=== PATIENT | male | born 1995 | race African-American/Black ===

== ENCOUNTER 2017-12-06 10:27 | Emergency (ER) | payer OTHER ==
[~2017-12-06] VITALS: Ht 193 cm; Wt 85.7 kg
--- NOTE | ~2017-12-06 | EKG ---
[address] [address] ELECTROCARDIOGRAM REPORT Name: CONSUELO WHITE Room #: DEP [facility]#: [id number] Admission: 12/06/17 Attend Phys: Discharge: 12/06/17 Date of : [birth year] Report #: [id number] THIS REPORT FOR: //name// [facility] [place] [facility] ED Test Date: 2017-12-06 Test Time: 10:37:57 Pat Name: CONSUELO WHITE Department: Room: Gender: M Directory Operator: [facility] : 1995 Requested By: Noni Wilkes Order Number: [id number] MD: Ulices Aceves Measurements Intervals Meally Rate: 45 P: 64 LA: 209 QRS: 71 QRSD: 108 T: 47 QT: 467 QTc: 404 Interpretive Statements Sinus bradycardia Probable left ventricular hypertrophy Baseline wander in lead(s) V3,V4 Compared to ECG 05/23/2016 05:52:50 Sinus arrhythmia no longer present Electronically Signed On 12-06-2017 17:11:59 CDT by Ulices Aceves [email or web address] <ELECTRONICALLY SIGNED> By: Ulices Aceves MD 12/06/17 1711 1037 [id number] Ulices Aceves MD /EPI
[~2017-12-06 10:27] MED LIST: PROAIR HFA8.5 GM INH
[2017-12-06 10:35] VITALS: BP 145/78
[2017-12-06 10:52] LABS: ABSOLUTE NEUTROPHILS 5.7 thou/uL (1.4-8.2); BASOPHILS 0.5 % (0.0-2.0); EOSINOPHILS 2.9 % (0.0-3.0); HEMOGLOBIN 13.9 gm/dL (14.0-18.0); LYMPHOCYTES 21.2 % (24.0-44.0); MCHC 33.8 g/dL (28.0-37.0); MCV 91.8 fL (80.0-100.0); MONOCYTES 6.3 % (1.0-8.0); PLATELET COUNT 150 thou/uL (150-400); POLYS 69.1 % (36.0-66.0); RBC 4.47 mil/uL (4.50-6.00); RDW 13.4 % (10.5-14.5); WBC 8.2 thou/uL (4.0-11.0)
[2017-12-06 11:03] LABS: ANION GAP 6 mmol/L (7-16); BUN 14 mg/dL (7-18); CHLORIDE 106 mmol/L (98-107); CO2 25 mmol/L (21-32); CREATININE 1.3 mg/dL (0.7-1.3); GLUCOSE 106 mg/dL (74-106); POTASSIUM 3.9 mmol/L (3.5-5.1); SODIUM 137 mmol/L (136-145)
[2017-12-06 11:12] LABS: ALBUMIN 3.8 g/dL (3.4-5.0); DIRECT BILIRUBIN < 0.1 mg/dL (<0.1-0.3); LIPASE 95 U/L (73-393); SGOT 26 U/L (15-37); SGPT 23 U/L (30-65); TOTAL BILIRUBIN 0.3 mg/dL (<0.1-1.0); TOTAL PROTEIN 7.2 g/dL (6.4-8.2); TROPONIN-I < 0.04 ng/mL (<0.06)
[2017-12-06] MEDS ORDERED: PROTONIX40 M1 PO (11:30)
[2017-12-06] MEDS ORDERED: NORCO 5-325 TA1 EACH PO (11:55)
== END 2017-12-06 11:45 | disposition home or self-care (01) ==
LOC: ER 10:27
PROVIDERS: Emergency Medicine
DX: K21.9 Gastro-esophageal reflux disease without esophagitis (principal); Z91.013 Allergy to seafood

== ENCOUNTER 2018-07-08 21:27 | Emergency (ER) | payer OTHER ==
[~2018-07-08] VITALS: Ht 193 cm; Wt 85.7 kg
[~2018-07-08 21:27] MED LIST changes: +NORCO 5-325 TA1 EACH PO; +PROTONIX40 M1 PO
[2018-07-08 22:00] LABS: ABSOLUTE NEUTROPHILS 11.8 thou/uL (1.4-8.2); BASOPHILS 0.4 % (0.0-2.0); EOSINOPHILS 0.8 % (0.0-3.0); HEMATOCRIT 40.8 % (42.0-52.0); HEMOGLOBIN 14.1 gm/dL (14.0-18.0); LYMPHOCYTES 6.7 % (24.0-44.0); MCH 31.4 pg (26.0-34.0); MCHC 34.5 g/dL (28.0-37.0); MCV 91.1 fL (80.0-100.0); MONOCYTES 5.2 % (1.0-8.0); PLATELET COUNT 152 thou/uL (150-400); POLYS 86.9 % (36.0-66.0); RBC 4.48 mil/uL (4.50-6.00); RDW 12.7 % (10.5-14.5); WBC 13.6 thou/uL (4.0-11.0)
[2018-07-08 22:05] LABS: CALCIUM 8.6 mg/dL (8.5-10.1); CREATININE 1.2 mg/dL (0.7-1.3); POTASSIUM 3.8 mmol/L (3.5-5.1)
[2018-07-08] MEDS ORDERED: IBUPROFEN 800800 M1 PO (22:24)
== END 2018-07-08 22:55 | disposition home or self-care (01) ==
LOC: ER 21:27
PROVIDERS: Emergency Medicine
DX: J02.0 Streptococcal pharyngitis (principal); Z91.010 Allergy to peanuts; Z91.013 Allergy to seafood

== ENCOUNTER 2020-11-09 22:29 | Emergency (ER) | payer OTHER ==
[~2020-11-09] VITALS: Ht 193 cm; Wt 91.4 kg
--- NOTE | ~2020-11-09 | EMS ---
[facility] [address] [place] [address] EMS Patient Care Report Name: CONSUELO WHITE JR [id number] Admission: 11/09/20 Attend Phys: Discharge: Date of : [birth year] Report #: [id number] THIS REPORT FOR: //name// Report Transmitted: 11/09/2020 23:53 EMS Care Summary [place], [place]/[facility] Incident [id number] @ 11/09/2020 22:01 Incident Location [address] [place] [id number] Patient CONSUELO WHITE Male, 25 Years 1995 Patient Address [address] [place] [address] Patient History None Reported, Patient Allergies Peanut allergy,Seafood allergy, Patient Medications None Reported, Disposition Transported No Lights/[place] Reason Allergic Reaction/Stings Transported To [facility] Narrative Called for allergic reaction. Upon arrival, P28 on the scene. Pt said he had some seafood and knows he is allergic. He c/o difficulty breathing, throat tightening and his tongue and lips feel funny. His breath sounds were clear, possible some minor wheezing in lower right lobe. He was moved to the EMS cot and loaded into the ambulance w/o incident. Vitals obtained. 18g IV and D-stick. 4 Lead. 50mg Benedryl IVP. Neb tx. Vitals repeated. En route: pt said he was doing better. RR to ER. Arrived: pt taken to ER #9 and moved to [facility] [address] [place] [address] EMS Patient Care Report Name: CONSUELO WHITE JR Room #: REG [facility].#: [id number] Admission: 11/09/20 Attend Phys: Discharge: Date of : [birth year] Report #: [id number] their bed w/o incident. Pt care & report to ER staff. Initial Vitals @22:17P: 81,R: 16,BP: 160/84,Pain: 0/10,GCS: 15,CO: 6,SpO2: 99,Revised Trauma: 12, @22:20P: 82,R: 16,BP: 164/89,Pain: 0/10,GCS: 15,Glucose: 76,CO: 7,SpO2: 100,Revised Trauma: 12,FL Suspected: false Assessments @22:11MENTAL:Person Oriented,Time Oriented,Event Oriented,Place Oriented,SKIN:HEENT:Head/Face: Swelling,Eyes: Right Pupil: 3-mm,Eyes: Left Pupil: 3-mm,LUNG SOUNDS:ABDOMEN:PELVIS//GI:EXTREMITIES:Left Arm: No Abnormalities,Right Arm: No Abnormalities,Left Leg: No Abnormalities,Right Leg: No Abnormalities,PULSE:NEURO:No Abnormalities, Impression Allergic Reaction Procedures @22:19Albuterol - 2.5 Milligrams (mg) - NebulizedResponse: Unchanged@22:17Benadryl - 50 Milligrams (mg) - Intravenous (IV)Response: Improved@22:15Saline Lock 15cc (18 ga) Site: Antecubital-LeftResponse: UnchangedSucceeded@22:19Oxygen FlowRate: 8 Device: Nebulizer Response: UnchangedSucceeded@PTAOxygen FlowRate: 15 Device: Non Re-breather Mask (NRB) Response: ImprovedSucceeded@22:11ALS AssessmentResponse: UnchangedSucceeded@22:13StretcherResponse: Unchanged@22:163-Lead ECGResponse: UnchangedSucceeded Timeline [facility],Oxygen FlowRate: 15 Device: Non Re-breather Mask (NRB) Response: ImprovedSucceeded, 21:59,Call Received 21:59,Dispatch Notified 22:01,Dispatched 22:03,En Route 22:09,On Scene 22:11,At Patient 22:11,ALS Assessment,Response: UnchangedSucceeded, 22:13,Stretcher,Response: Unchanged 22:15,Saline Lock 15cc 18 ga Site: Antecubital-Left,Response: UnchangedSucceeded, 22:16,3-Lead ECG,Response: UnchangedSucceeded, 22:17,BP: 160/84 M,PULSE: 81,RR: 16 R,SPO2: 99 Ox,ETCO2: ,BG: ,PAIN: 0,GCS: 15, 22:17,Benadryl - 50 Milligrams (mg) - Intravenous (IV),Response: Improved 22:19,Oxygen FlowRate: 8 Device: Nebulizer Response: UnchangedSucceeded, 22:19,Albuterol - 2.5 Milligrams (mg) - Nebulized,Response: Unchanged [facility] [address] [place] [address] EMS Patient Care Report Name: CONSUELO WHITE Room #: REG M.R.#: [id number] Admission: 11/09/20 Attend Phys: Discharge: Date of : [birth year] Report #: [id number] 22:20,BP: 164/89 M,PULSE: 82,RR: 16 R,SPO2: 100 Ox,ETCO2: ,B,PAIN: 0,GCS: 15, 22:21,Depart Scene 22:26,At Destination 22:44,Call Closed Disclaimer v1.1 Copyright 2020 [employer] This EMS Care Summary contains data elements from the applicable legal record (which may be displayed differently). It is designed to provide pertinent information for the following purposes: continuity of care, clinical quality, and state data reporting. The complete legal record is available to ED staff and administrators of the receiving hospital in [employer]'s Patient Tracker. All data is provided "as is."
[~2020-11-09 22:29] MED LIST changes: +IBUPROFEN 800800 M1 PO
[2020-11-09] MEDS ORDERED: NOHOMEMEDICATIONS (22:36)
[2020-11-09] MEDS ORDERED: BENADRYL25 MG PO (23:17)
[2020-11-09] MEDS ORDERED: MEDROLDOSEPACK PO (23:17)
[2020-11-09] MEDS ORDERED: PEPCID40 MG PO (23:17)
[2020-11-09 23:39] VITALS: BP 111/79
== END 2020-11-09 23:39 | disposition home or self-care (01) ==
LOC: ER 22:29
DX: T78.40XA Allergy, unspecified, initial encounter (principal); Z91.010 Allergy to peanuts; Z91.013 Allergy to seafood; Y92.89 Other specified places as the place of occurrence of the external cause